=== PATIENT | female | born 1995 | race Caucasian/White ===

== ENCOUNTER 2016-10-24 18:25 | Emergency (ER) | payer MEDICAID ==
[~2016-10-24] VITALS: Ht 160 cm; Wt 85.0 kg
[~2016-10-24 18:25] MED LIST: PREN1TAB49 PO
[2016-10-24 18:46] VITALS: Ht 160 cm; Wt 85.0 kg
[2016-10-24] MEDS ORDERED: ACETAMINOPHEN 325 MG TAB PO ONE (19:30)
[2016-10-24 19:31] LABS: URINE BLOOD (Dip) POC Negative (NEGATIVE)
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
--- NOTE | 2016-10-24 21:52 | RADRPT ---
PROCEDURE: CT Brain without contrast. CLINICAL INDICATION: headache TECHNIQUE: A multiplanar CT of the brain was performed on a CT scanner utilizing axial imaging fro m the skull base through the vertex without IV contrast. The CTDIvol is 45.01 mGy and the DLP is 72 0.23 mGycm. One or more of the following dose reduction techniques were utilized: Automated exposu re control, adjustment of the mA and/or kV according to patient size, use of iterative reconstructio n technique. COMPARISON: None FINDINGS: No evidence of intracranial hemorrhage or abnormal extra-axial fluid collection. The brain parenchyma is normal attenuation morphology with preservation of ledezma white differentiatio n and age appropriate size of the ventricles and subarachnoid spaces. The posterior fossa contents, brainstem, craniocervical junction, orbits, pituitary axis, paranasal sinuses, mastoid air cells, and calvarium are unremarkable. IMPRESSION: 1. No intracranial hemorrhage or acute intracranial. 2. If clinical symptoms persist, MRI is recommended as follow-up. RPTAT:AAJJ Physician Marisa Date Time Electronically viewed and signed by Physician Marisa on 10/24/2016 21:52 PERLA/
[2016-10-24 22:06] VITALS: BP 123/61; RESP 20
[2016-10-24] MEDS ORDERED: NITR-58 PO (22:35)
[2016-10-24] MEDS ORDERED: SOD CHLORIDE 0.9% 1,000 ML IV ONE (23:30)
[2016-10-25 00:04] LABS: ALBUMIN 4.4 g/dl (3.3-4.9); POTASSIUM 3.6 mmol/L (3.5-5.1)
[2016-10-25 00:06] LABS: BILIRUBIN,INDIRECT 0.3 mg/dl (0-1.1); BILIRUBIN,TOTAL 0.3 mg/dl (0.2-1.3); CREATININE 0.76 mg/dl (0.44-1.00)
[2016-10-25 00:07] LABS: ALBUMIN/GLOBULIN RATIO 1.15; TOTAL PROTEIN 8.2 g/dl (6.1-8.1)
[2016-10-25 00:08] LABS: CALCIUM 9.2 mg/dl (8.4-10.2)
[2016-10-25 01:32] LABS: BASOPHILS % 0.4 % (0.0-2.0); EOSINOPHILS % 0.4 % (0.0-7.0); HEMATOCRIT 40.6 % (37.0-47.0); HEMOGLOBIN 13.7 g/dl (12.0-16.0); LYMPHOCYTES # 0.5 10^3/ul (0.8-2.9); LYMPHOCYTES % 8.7 % (15.0-51.0); MEAN CORPUSCULAR HEMOGLOBIN 29.6 pg (29.0-33.0); MEAN CORPUSCULAR HGB CONC 33.7 g/dl (32.0-37.0); MEAN CORPUSCULAR VOLUME 87.7 fl (82.0-101.0); MEAN PLATELET VOLUME 10.2 fl (7.4-10.4); MONOCYTE # 0.5 10^3/ul (0.3-0.9); MONOCYTES % 8.3 % (0.0-11.0); NEUTROPHIL # 4.6 10^3/ul (1.6-7.5); NEUTROPHILS % 81.5 % (39.0-77.0); PLATELET COUNT 210 10^3/UL (140-415); RED BLOOD COUNT 4.63 10^6/ul (4.20-5.40); RED CELL DISTRIBUTION WIDTH 13.3 % (11.5-14.5); WHITE BLOOD COUNT 5.6 10^3/ul (4.8-10.8)
[2016-10-25 01:59] LABS: ADD UMIC YES; URINE BILIRUBIN (Dip) NEGATIVE (NEGATIVE); URINE BLOOD (Dip) NEGATIVE (NEGATIVE); URINE COLOR LT. YELLOW (YELLOW); URINE GLUCOSE (Dip) NEGATIVE (NEGATIVE); URINE KETONES (Dip) NEGATIVE (NEGATIVE); URINE LEUKOCYTE ESTERASE (Dip) 1+ (NEGATIVE); URINE NITRITE (Dip) NEGATIVE (NEGATIVE); URINE TOTAL PROTEIN (Dip) 1+ (NEGATIVE); URINE UROBILINOGEN (Dip) 0.2 E.U./dL (0.1-1.0)
--- NOTE | 2016-10-25 02:10 | RADRPT ---
PROCEDURE: CT Lumbar Spine without contrast. CLINICAL INDICATION: Lumbar spine pain, weakness. TECHNIQUE: The study was performed on a multislice multidetector CT scanner. Spiral axial 1 mm im ages were obtained through the lumbar spine without intravenous contrast. Sagittal and coronal refor mations were created from the raw axial data. The images were reviewed on a PACS workstation. RADIATION DOSE: CTDIvol: 20.9 mGyDLP: 516.5 mGy-cm COMPARISON: No prior studies are available for comparison. FINDINGS: The alignment of the lumbar spine is normal. No vertebral body subluxation is seen. The interverte bral discs are normal in height. The vertebral body heights and marrow density are normal. The par aspinal soft tissues unremarkable. No significant paraspinal soft tissue swelling. L1-L2: The posterior margin of the disc is normal in appearance. No significant disc bulge or prot rusion is evident. The central canal and neural foramina are adequately patent. L2-L3: The posterior margin of the disc is normal in appearance. No significant disc bulge or prot rusion is evident. The central canal and neural foramina are adequately patent. L3-L4: The posterior margin of the disc is normal in appearance. No significant disc bulge or prot rusion is evident. The central canal and neural foramina are adequately patent. L4-L5: The posterior margin of the disc is normal in appearance. No significant disc bulge or prot rusion is evident. The central canal and neural foramina are adequately patent. L5-S1: There is a 2-3 mm annular disc bulge. The thecal sac is patent, measuring 9 mm midline AP d iameter. There is mild bilateral facet spondylosis. There is mild narrowing of both lateral recess es. There is mild bilateral neural foraminal narrowing. IMPRESSION: 1. Mild degenerative disc disease with superimposed 2-3 mm annular disc bulge, mild narrowing of percy th lateral recesses and mild bilateral neural foraminal narrowing. No significant central stenosis. 2. The remaining lumbar spine is normal in appearance. No evidence of fracture. RPTAT: HGAS .Alex Velasco MD, MD Date Time Electronically viewed and signed by .Alex Velasco MD, on 10/25/2016 02:10 .S/
[2016-10-25] MEDS ORDERED: OSLT75C PO (02:35)
[2016-10-25 02:37] LABS: BACTERIA,URINE MANY; SQUAMOUS EPITHELIAL CELL,UR MANY
[2016-10-25 02:45] VITALS: PULSE 89; TEMP 98.2
== END 2016-10-25 02:46 | disposition home or self-care (01) ==
LOC: FTE 18:25
DX: J10.1 Influenza due to other identified influenza virus with other respiratory manifestations (principal); N39.0 Urinary tract infection, site not specified
CPT/HCPCS: 36415; 70450; 72131; 80053; 81001; 82962; 85025; 87400; 93005; J7030; Z7502; Z7610; 81003

== ENCOUNTER 2018-04-28 15:56 | Emergency (ER) | END 2018-04-28 17:22 | disposition home or self-care (01) ==

== ENCOUNTER 2018-06-08 22:55 | Emergency (ER) | END 2018-06-09 03:59 | disposition home or self-care (01) ==